=== PATIENT | male | born 1995 | race Caucasian/White ===

== ENCOUNTER → 2019-06-17 | Outpatient (CLI) | payer BC, OTHER ==
[~2019-06-17] MED LIST: IBUP800 PO; META800 PO; TRAM50 PO
== END | disposition home or self-care (01) ==
LOC: LAB SHORT 14:52 → LAB 14:52
DX: J02.9 Acute pharyngitis, unspecified (principal)
CPT/HCPCS: 87081

== ENCOUNTER → 2019-06-18 | Outpatient (CLI) | payer BC, OTHER | END | disposition home or self-care (01) | LOC: LAB 15:39 → LAB SHORT 15:39 | PROVIDERS: Family Medicine | DX: J02.9 Acute pharyngitis, unspecified (principal) | CPT/HCPCS: 87491; 87591 ==

== ENCOUNTER → 2019-07-13 | Outpatient (CLI) | payer BC, OTHER | END | disposition home or self-care (01) | LOC: LAB SHORT 15:36 → LAB 15:36 | DX: J02.9 Acute pharyngitis, unspecified (principal) | CPT/HCPCS: 87081 ==